=== PATIENT | female | born 2000 | race Caucasian/White ===

== ENCOUNTER 2022-06-28 10:39 | Outpatient (CLI) | payer OTHER, SELFPAY | END 2022-06-28 10:40 | disposition home or self-care (01) | LOC: ANHAUDIO 10:43 | PROVIDERS: PCP Physician Assistant; Visit Provider Physician Assistant | DX: H91.90 Unspecified hearing loss, unspecified ear (principal) | CPT/HCPCS: 92552; 92556; 92567 ==

== ENCOUNTER 2023-02-28 13:02 | Emergency (ER) | payer OTHER, SELFPAY ==
--- NOTE | ~2023-02-28 | CT_ITS ---
EXAMINATION: CT brain wo con DATE: 02/28/2023 14:15 INDICATION: Headache TECHNIQUE: Computed tomography (CT) of the head was performed without intravenous contrast. Sagittal and coronal reconstructions were performed. The mA was adjusted according to patient size. Iterative reconstruction technique was employed. The dose-length product was 605.33 mGy-cm. COMPARISON: None FINDINGS: No acute intracranial hemorrhage, acute infarction or abnormal extra axial fluid collection. Ventricl es are normal and symmetric. No mass/mass effect. The orbits, paranasal sinuses and mastoid air cells are normal. IMPRESSION: 1. Normal head CT. Reviewed, dictated and finalized at location A. IMPRESSION: 1. Normal head CT.
[2023-02-28 13:05] VITALS: BP 138/71; PULSE 77; RESP 14; TEMP 36.3; O2SAT 100
--- NOTE | 2023-02-28 14:56 | ED.HA ---
HPI - Headache General Chief Complaint: Headache Stated Complaint: headache Time Seen by Provider: 02/28/23 13:37 Source: patient Mode of arrival: ambulatory Limitations: no limitations History of Present Illness HPI Narrative: 22-year-old female presents today with complaints of a headache for about 2 weeks. Patient says 2 weeks ago she was at work when she had her head on another door and has had a aching headache in the front bilateral temporal lobes ever since. Patient did start with nausea and vomiting today. Does have a history of previous concussion and history of migraines. Patient says this is not like her migraines. Last migraines had were in her high school years. Patient did do brain rest since she hit her head. But she did not limit her TV time. She does work and goes to school. Patient denies any chest pain, shortness of breath or any other neurological symptoms at this time. Related Data Allergies Allergy/AdvReac Type Severity Reaction Status Date / Time Sulfa (Sulfonamide Allergy Rash Verified 02/28/23 13:10 Antibiotics) Review of Systems Review of Systems: All systems reviewed & are unremarkable except as noted in HPI and below Exam Const: General: cooperative, healthy appearing, comfortable, no acute distress and well developed Orientation/consciousness: patient oriented x3 HENMT: Head: normal to inspection Eyes: General: appearance normal, both eyes and all related structures Resp: Effort & Inspection: normal respiratory effort and able to speak in complete sentences Auscultation: clear to auscultation bilaterally Cardio: Rate: regular rate Rhythm: regular rhythm Heart sounds: S1 normal heart sound present and S2 normal heart sound present Neuro: General: patient oriented x3 and CN's II-XI intact bilaterally Cranial nerves: Yes CN's II-XII intact bilaterally and Yes Equal, round and reactive pupils present Cognition (Neuro): normal cognition Speech: normal speech Gait exam (Neuro): Normal gait present Motor exam (neuro): 5/5 motor strength present throughout Course Reevaluation(s) Reevaluation #1: Patient without any headache at this time. Will be discharged home. Date: 02/28/23 Time: 15:57 Vital Signs Vital signs: Vital Signs Temperature 97.4 F L 02/28/23 13:05 Pulse Rate 77 02/28/23 13:05 Respiratory Rate 14 02/28/23 13:05 Blood Pressure 138/71 02/28/23 13:05 Pulse Oximetry 100 02/28/23 13:05 Oxygen Delivery Room Air 02/28/23 13:05 Temperature 97.4 F L 02/28/23 13:05 Pulse Rate 78 02/28/23 16:20 Respiratory Rate 20 02/28/23 16:20 Blood Pressure 128/76 02/28/23 16:20 Pulse Oximetry 100 02/28/23 16:20 Oxygen Delivery Room Air 02/28/23 13:05 MDM - Headache MDM Narrative Medical decision making narrative: 22-year-old female HPI as noted. Differentials as below. Work-up to include a CT of the head due to a recent injury and history of migraines but this headache is different. CT is negative for any acute process. Will order migraine cocktail. IV fluids, Toradol, Reglan, Benadryl. Patient without any pain after cocktail and will be discharged home with plan follow-up with primary care provider. Differential Diagnosis Differential diagnosis: Likely migraine, tension headache, headache and other (Concussion) Medical Records Attestation: I reviewed the patient's medical records. Imaging Data Attestation: I personally reviewed and interpreted this imaging study as follows: Radiologist's impression: Impressions Head CT 02/28/23 14:16 IMPRESSION: 1. Normal head CT. Discharge Plan Discharge Clinical Impression: Post-traumatic headache Patient Disposition: Home, Self-Care Condition: Stable Instructions: Antibiotic Form, Concussion (ED), Acute Headache (ED) Additional Instructions: make sure to stay hydrated. Limit screens and try to rest your brain. Follow up with primary for further evaluation
[2023-02-28] MEDS: diphenhydrAMINE HCl INJ 50 MG/ML VIAL 25 MG IV PUSH (15:02)
[2023-02-28] MEDS: METOCLOPRAMIDE HCL INJ 10 MG/2 ML VIAL IV PUSH (15:02)
[2023-02-28] MEDS: KETOROLAC 30 MG/ML VIAL (*BKC) IV PUSH (15:02)
[2023-02-28] MEDS: LACTATED RINGERS 1,000 ML 999 ML IV CONT (15:02)
[2023-02-28 16:20] VITALS: BP 128/76; PULSE 78; RESP 20; O2SAT 100
== END 2023-02-28 16:21 | disposition home or self-care (01) ==
PROVIDERS: Emergency Provider Nurse Practitioner Family; PCP Physician Assistant
DX: G44.309 Post-traumatic headache, unspecified, not intractable (principal)
CPT/HCPCS: 70450; 96361; 96374; 96375; 99284; J1200; J1885; J2765; J7120

== ENCOUNTER 2023-07-27 09:02 | Emergency (ER) | payer OTHER, SELFPAY ==
--- NOTE | ~2023-07-27 | XR_ITS ---
EXAMINATION: XR ankle LT 2V DATE: 07/27/2023 09:12 INDICATION: Left ankle pain TECHNIQUE: Two views of the left ankle were obtained. COMPARISON: None. FINDINGS: No fracture, dislocation, or subluxation. The bones, soft tissues, and joint spaces are nor mal. IMPRESSION: 1. No acute osseous abnormality. Reviewed, dictated and finalized at location F. ONNEL TECHNICIAN
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
[2023-07-27 09:07] VITALS: BP 120/66; PULSE 95; RESP 16; TEMP 36.3; O2SAT 100
== END 2023-07-27 09:55 | disposition home or self-care (01) ==
LOC: ANHED 09:35
PROVIDERS: Emergency Provider Nurse Practitioner Family; PCP Physician Assistant
DX: S93.412A Sprain of calcaneofibular ligament of left ankle, initial encounter (principal); X50.9XXA Other and unspecified overexertion or strenuous movements or postures, initial encounter
CPT/HCPCS: 73600; 99283